=== PATIENT | male | born 1945 | race Hispanic/Latino ===

== ENCOUNTER 2019-03-20 09:58 | Emergency (ER) | payer MEDICARE ==
[2019-03-20] MEDS ORDERED: NA CHLORIDE 0.9% 2,000 ML ONE (11:02)
[2019-03-20] MEDS ORDERED: ONDANSETRON 4 MG/2 ML VIAL ONE (11:02)
[2019-03-20 11:12] LABS: Absolute Lymphocytes (CBC) 1.7 K/uL (0.7-4.9); Absolute Monocytes 0.8 K/uL (0.1-1.3); Absolute Neutrophil 7.2 K/uL (1.8-8.0); Basophils % 0.3 % (0-1.3); Hematocrit 34.4 % (39.6-49.0); Lymphocytes % 17.1 % (15.3-44.8); MPV 10.5 fL (7.6-11.3); Monocytes % 8.6 % (3.3-12.3); RBC Red Blood Cell Count 4.06 M/uL (4.33-5.43)
[2019-03-20 11:26] LABS: Bilirubin Direct 0.2 mg/dL (0-0.2); Bilirubin Total 0.5 mg/dL (0.2-1.0); Potassium 3.4 mmol/L (3.5-5.1); Protein, Total 7.5 g/dL (6.4-8.2)
--- NOTE | 2019-03-20 11:43 | ER ---
Nurse's Notes [facility] Name: Jeff Tyler Age: 74 yrs Sex: Male : 1945 Arrival Date: 03/20/2019 Time: 10:00 Bed 26 Private MD: Blanye Hdz E Diagnosis: Diarrhea, unspecified Presentation: 03/20 10:03 Transition of care: patient was not received from another setting of care. sv 10:03 Method Of Arrival: Ambulatory sv 10:03 Presenting complaint: Patient states: vomiting, diarrhea, chills, headache started sv Wednesday. Onset of symptoms was March 18, 2019. Care prior to arrival: Medication(s) given: Tylenol, Pepto bismol. 10:03 Acuity: LILY 3 sv 11:07 Risk Assessment: Do you want to hurt yourself or someone else? Patient reports no aj1 desire to harm self or others. Initial Sepsis Screen: Does the patient meet any 2 criteria? No. Patient's initial sepsis screen is negative. Does the patient have a suspected source of infection? No. Patient's initial sepsis screen is negative. Historical: - Allergies: 10:05 No Known Allergies; sv - PMHx: 10:05 Hypertension; Prostate; sv - Immunization history:: Adult Immunizations up to date. - Social history:: Smoking status: Patient/guardian denies using alcohol, street drugs, The patient lives with family. - Ebola Screening: : Patient denies travel to an Ebola-affected area in the 21 days before illness onset. - Family history:: not pertinent. Screenin:10 Abuse screen: Denies threats or abuse. Denies injuries from another. Nutritional aj1 screening: No deficits noted. Tuberculosis screening: No symptoms or risk factors identified. 13:03 Fall Risk None identified. aj1 Assessment: 10:10 General: Appears in no apparent distress. comfortable, Behavior is calm, cooperative, aj1 appropriate for age. Pain: Denies pain. Neuro: Level of Consciousness is awake, alert, obeys commands, Oriented to person, place, time, situation. Cardiovascular: Patient's skin is warm and dry. Respiratory: Airway is patent Respiratory effort is even, unlabored, Respiratory pattern is regular, symmetrical. GI: Abdomen is non-distended, Bowel sounds present X 4 quads. Abd is soft X 4 quads Abd is non tender X 4 quads Reports diarrhea, nausea, vomiting. : No signs and/or symptoms were reported regarding the genitourinary system. EENT: No signs and/or symptoms were reported regarding the EENT system. Derm: No signs and/or symptoms reported regarding the dermatologic system. Skin is pink, warm \T\ dry. normal. Musculoskeletal: No signs and/or symptoms reported regarding the musculoskeletal system. Circulation, motion, and sensation intact. 11:07 Reassessment: Patient appears in no apparent distress at this time. No changes from aj1 previously documented assessment. Patient and/or family updated on plan of care and expected duration. Pain level reassessed. Patient is alert, oriented x 3, equal unlabored respirations, skin warm/dry/pink. 11:46 Reassessment: Patient discharge pending completion of IV fluids. aj1 12:26 Reassessment: Patient appears in no apparent distress at this time. No changes from aj1 previously documented assessment. Patient and/or family updated on plan of care and expected duration. Pain level reassessed. Patient is alert, oriented x 3, equal unlabored respirations, skin warm/dry/pink. Patient states feeling better. 13:02 Reassessment: Patient appears in no apparent distress at this time. No changes from aj1 previously documented assessment. Patient and/or family updated on plan of care and expected duration. Pain level reassessed. Patient is alert, oriented x 3, equal unlabored respirations, skin warm/dry/pink. Vital Signs: 10:05 BP 146 / 71; Pulse 79; Resp 16; Temp 99.2; Pulse Ox 95% ; Weight 75.75 kg; Height 5 ft. sv 5 in. (165.10 cm); Pain 0/10; 11:07 BP 132 / 62; Pulse 68; Resp 18; Pulse Ox 98% on R/A; aj1 12:26 BP 136 / 61; Pulse 66; Resp 18; Pulse Ox 100% on R/A; aj1 13:02 BP 139 / 66; Pulse 80; Resp 16; Temp 98.9; Pulse Ox 100% on R/A; aj1 10:05 Body Mass Index 27.79 (75.75 kg, 165.10 cm) sv ED Course: 10:00 Patient arrived in ED. ag5 10:00 Blayne Hdz MD is Private Physician. ag5 10:05 Triage completed. sv 10:07 Arm band placed on. sv 10:08 Vita Tripp, RN is Primary Nurse. aj1 10:10 Patient has correct armband on for positive identification. Bed in low position. Call aj1 light in reach. Side rails up X 1. 10:10 No provider procedures requiring assistance completed. aj1 10:14 De Cheung MD is Attending Physician. ma2 11:06 Initial lab(s) drawn, by me, sent to lab. Inserted saline lock: 18 gauge in right aj1 antecubital area, using aseptic technique. Blood collected. 13:02 IV discontinued, intact, bleeding controlled, No redness/swelling at site. Pressure aj1 dressing applied. Administered Medications: 11:06 Drug: Zofran 4 mg Route: IVP; Site: right antecubital; aj1 12:25 Follow up: Response: No adverse reaction aj1 11:06 Drug: NS 0.9% 2000 ml Route: IV; Rate: 1 bolus; Site: right antecubital; aj1 13:01 Follow up: IV Status: Completed infusion; IV Intake: 2000ml aj1 Intake: 13:01 IV: 2000ml; Total: 2000ml. aj1 Outcome: 11:43 Discharge ordered by . nj2 13:03 Discharged to home ambulatory. aj1 13:03 Condition: good 13:03 Discharge instructions given to patient, family, Instructed on discharge instructions, follow up and referral plans. no drinking with medication, no driving heavy equipment, medication usage, Demonstrated understanding of instructions, follow-up care, medications, Prescriptions given X 3. 13:04 Patient left the ED. aj1 Signatures: Vita Tripp, RN RN aj1 Dolly Huizar RN RN De Cheung MD MD ma2 Gaskin, Ajare ag
--- NOTE | 2019-03-20 11:44 | EDPHYS ---
Physician Documentation [facility] Name: Jeff Tyler Age: 74 yrs Sex: Male : 1945 Arrival Date: 03/20/2019 Time: 10:00 Bed 26 Private MD: Blayne Hdz E ED Physician De Cheung HPI: 03/20 11:14 This 74 yrs old Male presents to ER via Ambulatory with complaints of ma2 Nausea/Vomiting/Diarrhea. 11:14 The patient presents to the emergency department with nausea, vomiting, diarrhea. ma2 Onset: The symptoms/episode began/occurred gradually, 2 day(s) ago. Possible causes: bad food exposure. Associated signs and symptoms: Pertinent negatives: belching, flatulence, GI bleeding, hematuria. Severity of symptoms: At their worst the symptoms were mild in the emergency department the symptoms are unchanged. The patient has experienced similar episodes in the past. Historical: - Allergies: 10:05 No Known Allergies; sv - PMHx: 10:05 Hypertension; Prostate; sv - Immunization history:: Adult Immunizations up to date. - Social history:: Smoking status: Patient/guardian denies using alcohol, street drugs, The patient lives with family. - Ebola Screening: : Patient denies travel to an Ebola-affected area in the 21 days before illness onset. - Family history:: not pertinent. ROS: 11:14 Constitutional: Negative for fever, chills, and weight loss, Cardiovascular: Negative ma2 for chest pain, palpitations, and edema, Respiratory: Negative for shortness of breath, cough, wheezing, and pleuritic chest pain, : Negative for injury, bleeding, discharge, and swelling, MS/Extremity: Negative for injury and deformity, Skin: Negative for injury, rash, and discoloration, Neuro: Negative for headache, weakness, numbness, tingling, and seizure, Psych: Negative for depression, anxiety, suicide ideation, homicidal ideation, and hallucinations, Allergy/Immunology: Negative for hives, rash, and allergies. 11:14 Abdomen/GI: Positive for nausea, vomiting, and diarrhea, Negative for constipation, bowel incontinence. Exam: 11:14 Constitutional: This is a well developed, well nourished patient who is awake, alert, ma2 and in no acute distress. Chest/axilla: Normal chest wall appearance and motion. Nontender with no deformity. No lesions are appreciated. Cardiovascular: Regular rate and rhythm with a normal S1 and S2. No gallops, murmurs, or rubs. Normal PMI, no JVD. No pulse deficits. Respiratory: Lungs have equal breath sounds bilaterally, clear to auscultation and percussion. No rales, rhonchi or wheezes noted. No increased work of breathing, no retractions or nasal flaring. Abdomen/GI: Soft, non-tender, with normal bowel sounds. No distension or tympany. No guarding or rebound. No evidence of tenderness throughout. MS/ Extremity: Pulses equal, no cyanosis. Neurovascular intact. Full, normal range of motion. Neuro: Awake and alert, GCS 15, oriented to person, place, time, and situation. Cranial nerves II-XII grossly intact. Motor strength 5/5 in all extremities. Sensory grossly intact. Cerebellar exam normal. Normal gait. Vital Signs: 10:05 BP 146 / 71; Pulse 79; Resp 16; Temp 99.2; Pulse Ox 95% ; Weight 75.75 kg; Height 5 ft. sv 5 in. (165.10 cm); Pain 0/10; 11:07 BP 132 / 62; Pulse 68; Resp 18; Pulse Ox 98% on R/A; aj1 12:26 BP 136 / 61; Pulse 66; Resp 18; Pulse Ox 100% on R/A; aj1 13:02 BP 139 / 66; Pulse 80; Resp 16; Temp 98.9; Pulse Ox 100% on R/A; aj1 10:05 Body Mass Index 27.79 (75.75 kg, 165.10 cm) sv MDM: 10:14 Patient medically screened. ma2 11:14 Differential diagnosis: Nonspecific abd pain, gastritis, viral gastroenteritis, ma2 gastroenteritis. 11:42 Data reviewed: vital signs, nurses notes. Counseling: I had a detailed discussion with maMalena the patient and/or guardian regarding: the historical points, exam findings, and any diagnostic results supporting the discharge/admit diagnosis, the presence of at least one elevated blood pressure reading (>120/80) during this emergency department visit, the need for outpatient follow up. Response to treatment: the patient's symptoms have resolved after treatment. 03/20 10:25 Order name: Basic Metabolic Panel; Complete Time: 11:43 md03/20 10:25 Order name: CBC with Diff; Complete Time: 11:14 [facility] 03/20 10:25 Order name: Creatinine for Radiology; Complete Time: 03/20 10:25 Order name: Hepatic Function; Complete Time: 03/20 10:25 Order name: Lipase; Complete Time: md03/20 10:25 Order name: IV Saline Lock; Complete Time: 03/20 10:25 Order name: Labs collected and sent; Complete Time: : Administered Medications: 11:06 Drug: Zofran 4 mg Route: IVP; Site: right antecubital; aj1 12:25 Follow up: Response: No adverse reaction aj1 11:06 Drug: NS 0.9% 2000 ml Route: IV; Rate: 1 bolus; Site: right antecubital; aj1 13:01 Follow up: IV Status: Completed infusion; IV Intake: 2000ml aj Disposition: 03/20/19 11:43 Discharged to Home. Impression: Diarrhea, unspecified. - Condition is Stable. - Discharge Instructions: Food Choices to Help Relieve Diarrhea, Adult, Diarrhea, Adult. - Prescriptions for Tylenol- Codeine #3 300-30 mg Oral Tablet - take 2 tablet by ORAL route every 6 hours As needed; 30 tablet. Zofran 8 mg Oral Tablet - take 1 tablet by ORAL route every 12 hours As needed; 20 tablet. Pepcid 20 mg Oral Tablet - take 1 tablet by ORAL route once daily for 10 days; 10 tablet. - Medication Reconciliation Form, Thank You Letter, Antibiotic Education, Prescription Opioid Use form. - Follow up: Private Physician; When: Tomorrow; Reason: Continuance of care. Signatures: Dispatcher [employer] Vita Hodges RN RN aj1 Dolly Huizar RN RN sv Alzahri, Mohammad, MD MD ma2 Corrections: (The following items were deleted from the chart) 13:04 11:43 03/20/2019 11:43 Discharged to Home. Impression: Diarrhea, unspecified. Condition aj1 is Stable. Prescriptions for Tylenol-Codeine #3 300-30 mg Oral Tablet - take 2 tablet by ORAL route every 6 hours As needed; 30 tablet, Zofran 8 mg Oral Tablet - take 1 tablet by ORAL route every 12 hours As needed; 20 tablet, Pepcid 20 mg Oral Tablet - take 1 tablet by ORAL route once daily for 10 days; 10 tablet. and Forms are Medication Reconciliation Form, Thank You Letter, Antibiotic Education, Prescription Opioid Use. Follow up: Private Physician; When: Tomorrow; Reason: Continuance of care. ma2
== END 2019-03-20 13:04 | disposition home or self-care (01) ==
LOC: ER 09:58
DX: R19.7 Diarrhea, unspecified (principal); I10 Essential (primary) hypertension
CPT/HCPCS: 96361; 85025; 80048; 36415; 80076; 83690; 96374; 99284; J7030; J2405

== ENCOUNTER 2021-08-15 09:24 | Day surgery (SDC) | payer MEDICARE, OTHER ==
[2021-08-15 10:01] LABS: MPV 8.8 fL (7.6-11.3)
[2021-08-15 10:24] VITALS: BMI 29.2
[2021-08-15 10:25] LABS: Protime INR 1.2
[2021-08-15] MEDS ORDERED: MIDAZOLAM HCL 2 MG/2 ML INJ ONE (11:24)
[2021-08-15] MEDS ORDERED: FENTANYL CITR 100 MCG/2 ML ONE (11:25)
[2021-08-15 12:22] VITALS: O2SAT 100
[2021-08-15] MEDS ORDERED: NALOXONE 0.4 MG/ML VIAL ONE (12:35)
[2021-08-15 14:08] VITALS: BP 107/51; TEMP 97.4
--- NOTE | 2021-08-15 15:32 | RAD REPORT ---
EXAM DESCRIPTION: US - Liver Biopsy Procedure - 08/15/2021 11:23 am CLINICAL HISTORY: ABD MASS, renal versus liver origin COMPARISON: Abdomen Pelvis W Contrast dated 08/07/2021 TECHNIQUE: Patient presents for image guided biopsy of a very large 15 cm lobulated mass filling the right-side of the abdomen. Prior imaging showed a very vascular and necrotic mass suspected to be re nal in origin. The biopsy procedure, risks and alternatives were discussed with the patient in detail. After answeri ng all questions both oral and written consent were obtained. A time-out procedure was performed. The patient had limited [place] Citizen speaking ability. Translation services were provided by the patient's rianna taylor who stated that she is an RN. IV access and physiologic monitors were in place. Preliminary imaging was performed and identified an access site clear of the gross areas of necrosis and clear of the large vessels seen along the periphery of the mass. The patient was pre-medicated wi th 1.0 milligrams Versed IV and 100 micrograms fentanyl IV. Access site was prepped and draped in the usual sterile fashion. Skin and deeper tissues were anesthe tized with 1% lidocaine. Under direct sonographic visualization an 17 gauge introducer needle was adv anced into the mass. An 18 gauge biopsy needle was advanced through the introducer. A 2 cm long core biopsy was obtained. There were 3 additional core biopsies obtained with angulation of the needle all owing for sampling of different portions of the mass. All the biopsy samples were small and fragmente d indicating a necrotic mass. A total of 4 biopsies were obtained. Additional sampling was not felt t o likely generate additional quality tissue for evaluation. At the conclusion the procedure the introducer needle was removed. Direct pressure was applied along the path of the needle. Hemostasis was obtained at the skin surface. A sterile bandage was placed. Po st biopsy ultrasound imaging of the mass showed no evidence for active bleeding or hematoma. Vital signs were stable throughout the procedure. The patient tolerated procedure well without immedi ate complications. Conscious sedation time was 40 minutes. IMPRESSION: 1. Ultrasound-guided core biopsy was performed of the large 15 cm mass in the right abdo men. 2. The patient tolerated procedure well without immediate complications and was transferred to the [facility] day surgical area for post biopsy monitoring. 3. All obtained material was given to pathology for histology assessment.
== END 2021-08-15 14:20 | disposition home or self-care (01) ==
LOC: DS 09:24
PROVIDERS: ATTEND Surgery
PROC: BW11ZZZ Fluoroscopy of Abdomen and Pelvis (ICD-10-PCS; principal; 2021-08-15)
PROC: 0J983ZX Drainage of Abdomen Subcutaneous Tissue and Fascia, Percutaneous Approach, Diagnostic (ICD-10-PCS; 2021-08-15)
DX: R19.00 Intra-abdominal and pelvic swelling, mass and lump, unspecified site (principal)
CPT/HCPCS: 36415; 47000; 85049; 85610; 85730; 88305; J2250; J2310; J3010

== ENCOUNTER 2021-10-11 09:05 | Inpatient (IN) | payer OTHER ==
--- OUTSIDE RECORDS SUMMARY | 2021-10-11 09:08 | XMS REPORT | Continuity of Care Document ---
:1945 Author Organization [facility] t Address [address] [place] [address] Care Team Providers Name Role Phone SYSTEM, NOT IN Attending Clinician Unavailable Jess MCKEON Attending Clinician Unavailable Payers Payer Name Policy Type Policy Number Effective Date Expiration Date S [facility] [id number] 2021 MD Bautista rsmt MEDICARE 00:00:00 [facility] MEDICARE [id number] 2021-Present[address] [address], [place] [address]Medicare [employer] [id number] 2020 MEDICARE ADVANTAGE 00:00:00 Problems This patient has no known problems. Allergies, Adverse Reactions, Alerts Allergy Allergy Status Severity Reaction(s) Onset Inactive Treating Comm ents Source Name Type Date Date Clinician NO KNOWN Drug [facility] Social History Social Habit Start Date Stop Date Quantity Comments Source Sex Ass[birth year] At [birth year] MD King 00:00:00 00:00:00 Medications This patient has no known medications. Procedures This patient has no known procedures. Encounters Start End Encounter Admission Attending Care Care Encounter Source Date/Time Date/Time Type Type Clinicians Facility Department ID 2021-08-24 Outpatient SYSTEM, [facility] [id number] 09:46:54 PROVIDER Fabricio schwarz 2021-01-21 2021-01-21 Outpatient Binaca MCKEON [facility] [id number] [facility] 10:10:00 10:10:00 ZU[facility]KA [facility] 2020-12-31 2020-12-31 Outpatient Bianca MCKEON [facility] [id number] [facility] 10:10:00 10:10:00 [facility] 2020-12-31 2020-12-31 [facility] [id number] [facility] 10:10:00 10:10:00 [facility] Results This patient has no known results.
--- OUTSIDE RECORDS SUMMARY | 2021-10-11 09:08 | XMS REPORT | Clinical Summary ---
:1945 Author Organization [facility] Address [address] [place] [address] Care Team Providers Name Role Phone Rhys Domingo MD Unavailable Allergies Not on File Medications Not on file Active Problems Not on file Encounters Date Type Specialty Care Team Description 08/22/2021 Travel after 10/11/2020 Social History Tobacco Use Types Packs/Day Years Used Date Never Assessed Sex Assigned at Date Recorded Not on file Job Start Date Occupation Industry Not on file Not on file Not on file Last Filed Vital Signs Not on file Plan of Treatment Not on file Results Not on fileafter 10/11/2020 Insurance Payer Benefit Plan / Subscriber ID Effective Phone Address T ype Group Dates [employer] MEDICARE [id number] 2021-Prese [address] [address] Medicare HEALTHCARE ADVANTAGE [place] [employer] [id number] Care Teams Information Technology Auditor Relationship Specialty Start Date End Date Rhys Domingo MD PCP - External Referring General Surgery 08/21/[address] [place] [address] [id number]
[2021-10-11 10:52] LABS: Absolute Lymphocytes (CBC) 1.6 K/uL (0.7-4.9); Basophils % 0.4 % (0-1.3); Hematocrit 36.3 % (39.6-49.0); Lymphocytes % 17.1 % (15.3-44.8); MPV 8.8 fL (7.6-11.3); RBC Red Blood Cell Count 4.08 M/uL (4.33-5.43)
--- NOTE | 2021-10-11 10:53 | RAD REPORT ---
EXAM DESCRIPTION: CT - Head Brain Wo Cont - 10/11/2021 10:41 am CLINICAL HISTORY: Confused;Mental status change Headache, drowsiness COMPARISON: HEAD BRAIN W O CONTRAST dated 01/06/2015; Brain W/Wo Cont dated 09/10/2021; Abdomen Pel vis W Contrast dated 08/07/2021; Abdomen With Cont dated 09/08/2021; Thorax W/ Con dated 09/10/2021; Liver Biopsy Procedure dated 08/15/2021; Bone Imaging Whole Body dated 09/10/2021 TECHNIQUE: All CT scans are performed using dose optimization technique as appropriate and may inclu de automated exposure control or mA/KV adjustment according to patient size. FINDINGS: No intracranial hemorrhage, hydrocephalus or extra-axial fluid collection.Mild brain atrop hy with mild periventricular and deep white matter chronic microvascular ischemia.No areas of brain e josé luis or evidence of midline shift. The paranasal sinuses and mastoids are clear. The calvarium is intact. IMPRESSION: No acute intracranial abnormality. If clinical symptomology persists, recommend follow- up MRI of the brain.
--- NOTE | 2021-10-11 10:59 | RAD REPORT ---
EXAM DESCRIPTION: CTAbdomen Pelvis W Contrast - 10/11/2021 10:41 am CLINICAL HISTORY: Abdominal pain. abd pain, vomiting, diarrhea, known mass COMPARISON: Abdomen Pelvis W Contrast dated 08/07/2021 TECHNIQUE: Biphasic CT imaging of the abdomen and pelvis was performed with 100 ml non-ionic IV cont rast. All CT scans are performed using dose optimization technique as appropriate and may include automated exposure control or mA/KV adjustment according to patient size. FINDINGS: Small right pleural effusion. The very large highly vascular mass occupying the majority of the right lobe of the liver superior as pect of the right kidney appears similar in size and imaging appearance to the comparative study. No vascular thrombosis is evident. Mild free fluid is seen along the right aspect of the liver as well a s along the left lateral aspect of the spleen. No bowel obstruction evident. No free air or abscess. Mildly prominent left sided para-aortic adenop athy is similar to prior study. No lytic or blastic bone lesion. IMPRESSION: The large mass in the right upper quadrant shows no real change since prior examination. No acute process is demonstrated this examination.
[2021-10-11 11:05] LABS: Albumin 2.8 g/dL (3.4-5.0); Bilirubin Direct 0.6 mg/dL (0-0.2); Bilirubin Total 1.5 mg/dL (0.2-1.0); Magnesium 2.2 mg/dL (1.8-2.4); Potassium 3.9 mmol/L (3.5-5.1); Protein, Total 7.8 g/dL (6.4-8.2)
[2021-10-11] MEDS ORDERED: NA CHLORIDE 0.9% 1,000 ML ONE (11:06)
[2021-10-11] MEDS ORDERED: ONDANSETRON 4 MG/2 ML VIAL ONE ×2 (11:06→22:05)
[2021-10-11 13:25] LABS: Urine Blood 2+ (Negative); Urine Glucose Negative (Negative); Urine Protein 1+ (Negative); Urine Specific Gravity 1.015 (1.005-1.030)
--- NOTE | 2021-10-11 13:29 | EDPHYS ---
Physician Documentation [facility] Name: Jeff Tyler Age: 76 yrs Sex: Male : 1945 Arrival Date: 10/11/2021 Time: 09:07 Bed 16 Private MD: Blayne Hdz E ED Physician Levy Figueredo HPI: 10/11 09:47 This 76 yrs old Male presents to ER via Wheelchair with complaints of rn Confusion, Dizziness, Weakness, Vomiting/Diarrhea. 09:48 The patient presents with confusion, decreased mental status, decreased responsiveness. rn Onset: The symptoms/episode began/occurred yesterday. Possible causes: unknown. Current symptoms: In the emergency department the patient's symptoms are unchanged from the initial presentation. The patient has not experienced similar symptoms in the past. The patient has been recently seen by a physician:. Family reports started first chemotherapy treatment this past week, report several days of nausea/vomiting/diarrhea, got worse yesterday, unable to get to bathroom, + decreased LOC and confusion. NO known trauma. Family reports mass between kidney and liver. No known metastases.. Historical: - Allergies: 09:41 No Known Allergies; ss - Home Meds: 19:25 losartan-hydrochlorothiazide 100-25 mg oral tab 1 tab once daily for hypertension jg9 [Active]; trazodone 50 mg Oral tab 1 tab prn \\T\\ night [Active]; tamsulosin 0.4 mg oral cap 1 cap once daily [Active]; Vitamin D 33544gx once weekly (wednesday) Oral 50,000 unit [Active]; axitinib 5 mg oral tab 2 tabs every 12 hours for renal cell carcinoma [Active]; - PMHx: 09:41 Hypertension; Prostate; Cancer "mass between kidney and liver"; ss - Immunization history:: Client reports receiving the 2nd dose of the Covid vaccine. - Social history:: Smoking status: Patient denies any tobacco usage or history of. - Family history:: not pertinent. - Hospitalizations: : No recent hospitalization is reported. ROS: 09:48 Constitutional: Negative for fever, chills Eyes: Negative for injury, pain, redness, rn and discharge, Neck: Negative for injury, pain, and swelling, Cardiovascular: Negative for chest pain, palpitations, and edema, Respiratory: Negative for shortness of breath, cough, wheezing, and pleuritic chest pain, Abdomen/GI: Positive for nausea/vomiting/diarrhea Back: Negative for injury and pain, : Negative for injury, bleeding, discharge, and swelling, MS/Extremity: Negative for injury and deformity, Skin: Negative for injury, rash, and discoloration, Neuro: Negative for headache, numbness, tingling, and seizure. Exam: 09:48 Constitutional: This is a well developed, well nourished patient who is awake, but rn somnolent and slumped in wheelchair. Head/Face: Normocephalic, atraumatic. Eyes: Periorbital areas with no swelling, redness, or edema. ENT: dry MM Cardiovascular: Regular rate and rhythm. No pulse deficits. Respiratory: No increased work of breathing, no retractions or nasal flaring. Abdomen/GI: soft, non-distended, no focal tenderness Skin: Warm, dry MS/ Extremity: Pulses equal, no cyanosis. Neuro: Awake, somnolent, moves all 4 extremities, with generalized weakness, non-focal. Answers questions. Vital Signs: 09:37 BP 175 / 63; Pulse 85; Resp 18; Temp 98.7(O); Pulse Ox 98% on R/A; ss 10:15 BP 168 / 68; Pulse 80; Resp 14; Pulse Ox 98% on R/A; jg9 11:15 BP 169 / 71; Pulse 83; Resp 19 S; Pulse Ox 95% on R/A; jg9 12:15 BP 164 / 65; Pulse 84; Resp 20 S; Pulse Ox 94% on R/A; jg9 13:30 BP 156 / 72; Pulse 82; Resp 20 S; Pulse Ox 95% on R/A; jg9 14:30 BP 165 / 77; Pulse 83; Resp 20 S; Pulse Ox 92% on R/A; jg9 15:00 BP 157 / 75; Pulse 77; Resp 14; Pulse Ox 95% on R/A; jg9 16:00 BP 156 / 64; Pulse 79; Resp 16 S; Pulse Ox 92% on R/A; jg9 19:10 BP 157 / 60; Pulse 82; Resp 18; Pulse Ox 96% on R/A; mk 21:15 BP 161 / 74; Pulse 80; Resp 18; Pulse Ox 97% ; mk NIH Stroke Scale Scores: 10:24 NIHSS Score: 0 jg9 Sanjay Coma Score: 19:10 Eye Response: spontaneous(4). Verbal Response: confused(4). Motor Response: obeys mk commands(6). Total: 14. 22:44 Eye Response: spontaneous(4). Verbal Response: confused(4). Motor Response: obeys mk commands(6). Total: 14. MDM: 09:39 Patient medically screened. rn 13:23 Differential Diagnosis: CVA, electrolyte abnormality, hypoglycemia, intracranial bleed, rn sepsis, TIA, UTI, volume depletion. Data reviewed: vital signs, nurses notes, lab test result(s), radiologic studies, CT scan, and as a result, I will admit patient. Counseling: I had a detailed discussion with the patient and/or guardian regarding: the historical points, exam findings, and any diagnostic results supporting the discharge/admit diagnosis, lab results, radiology results, the need for further work-up and treatment in the hospital. Response to treatment: the patient's symptoms have mildly improved after treatment, and as a result, I will admit patient. Admission orders: after a detailed discussion of the patient's condition and case, the admit orders are written by me. ED course: Pt improved with fluids but still confused and slow to respond. Family reports seems better but not back to baseline. CT head neg for metastases, CT abdomen does not show worsening of mass. Will admit to Dr. Jaime for observation. . 10/11 09:46 Order name: Basic Metabolic Panel rn 10/11 09:46 Order name: CBC with Diff rn 10/11 09:46 Order name: Hepatic Function rn 10/11 09:46 Order name: Lipase rn 10/11 09:46 Order name: Urine Microscopic Only rn 10/11 09:46 Order name: Procalcitonin; Complete Time: 12:00 rn 10/11 09:46 Order name: Blood Culture Adult (2) rn 10/11 09:46 Order name: Magnesium; Complete Time: 12:00 rn 10/11 09:47 Order name: Basic Metabolic Panel; Complete Time: 12:00 EDMS 10/11 09:47 Order name: CBC with Automated Diff EDFL 10/11 09:47 Order name: Liver (Hepatic) Function; Complete Time: 12:00 EDMS 12/18 09:47 Order name: Lipase; Complete Time: 12:00 EDMS 10/11 10:44 Order name: SARS-COV-2 RT PCR (Document "Date of Onset" if Symptomatic); Complete Time: rn 13:10/11 12:26 Order name: AMMONIA rn 10/11 09:46 Order name: CT Head Brain wo Cont; Complete Time: 11:00 rn 10/11 09:46 Order name: CT Abd/Pelvis - IV Contrast Only; Complete Time: 11:00 rn 10/11 12:27 Order name: Urine Culture rn 10/11 12:27 Order name: Ammonia EDMS 10/11 12:27 Order name: Urine Culture EDMS 10/11 13:25 Order name: Urine Dipstick-Ancillary; Complete Time: 13:26 EDMS 10/11 13:44 Order name: Manual Differential EDMS 10/11 13:59 Order name: Comprehensive Metabolic Panel EDMS 10/11 13:59 Order name: Comprehensive Metabolic Panel EDMS 10/11 13:59 Order name: Thyroid Stimulating Hormone EDMS 10/11 13:59 Order name: CBC with Automated Diff EDMS 10/11 13:59 Order name: CBC with Automated Diff EDMS 10/11 13:59 Order name: Magnesium EDMS 10/11 13:59 Order name: Magnesium EDMS 10/11 13:59 Order name: Magnesium EDMS 10/11 13:59 Order name: Magnesium EDMS 10/11 09:46 Order name: IV Saline Lock; Complete Time: 11:05 rn 10/11 09:46 Order name: Labs collected and sent; Complete Time: 11:05 rn 10/11 09:46 Order name: Urine Dipstick-Ancillary (obtain specimen); Complete Time: 13:27 rn 10/11 09:46 Order name: EKG; Complete Time: 09:47 rn 10/11 09:46 Order name: EKG - Nurse/Tech; Complete Time: 11:05 rn 10/11 13:59 Order name: Heart Healthy EDMS Administered Medications: :18 Drug: NS 0.9% 1000 ml Route: IV; Rate: 1000 ml; Site: left forearm; jg9 13:25 Follow up: IV Status: Completed infusion; IV Intake: 1000ml jg9 11:20 Drug: Zofran (Ondansetron) 4 mg Route: IVP; Site: left forearm; jg9 13:36 Follow up: Response: No adverse reaction; Marked relief of symptoms jg9 Disposition Summary: 10/11/21 13:28 Hospitalization Ordered Hospitalization Status: Observation rn Provider: Lance Jaime rn Condition: Stable rn Problem: new rn Symptoms: have improved rn Bed/Room Type: Standard rn Location: Telemetry/MedSurg (Inpatient)(10/11/21 20:45) Room Assignment: 203(10/11/21 20:45) Diagnosis - Vomiting, unspecified rn - Diarrhea, unspecified rn - Altered mental status, unspecified rn - Dehydration rn Forms: - Medication Reconciliation Form rn - SBAR form rn NIH Stroke Scale - NIH Stroke Score Date: 10/11/2021 Time: 10:24 Total Score = 0 1a. Level of Consciousness (LOC) - 0(Alert) 1b. Level of Consciousness (LOC) (Month \\T\\ Age) - 0(Both) 1c. LOC Commands (Open \\T\\ Closes Eyes/Hygiene Teacher) - 0(Both) 2. Best Gaze (Lateral Gaze Paresis) - 0(Normal) 3. Visual Field Loss - 0(No visual loss) 4. Facial Palsy - 0(Normal) 5a. Left Arm: Motor (10-second hold) - 0(No drift) 5b. Right Arm: Motor (10-second hold) - 0(No drift) 6a. Left Leg: Motor (5-second hold - always test supine) - 0(No drift) 6b. Right Leg: Motor (5-second hold - always test supine) - 0(No drift) 7. Limb Ataxia (finger/nose \\T\\ heel/sanz - test with eyes open) - 0(Absent) 8. Sensory Loss (pinprick arms/legs/face) - 0(Normal) 9. Best Language: Aphasia (description/naming/reading) - 0(No aphasia) 10. Dysarthria (speech clarity - read or repeat words) - 0(Normal) 11. Extinction and Inattention (visual/tactile/auditory/spatial/personal) - 0(No abnormality) Initials: jg9 Signatures: Dispatcher [employer] EDMS Debi Fountain RN RN mw Nieto, Roman, MD MD rn Smirch, Shelby, RN RN ss Gilmore, Jennifer jg9 Corrections: (The following items were deleted from the chart) 18 13:28 Telemetry/MedSurg (observation) rn ss 18:38 13:28 wayne hodgson :45 18:38 [facility] ER [facility] mw 18:38 ERHOLD- mw
--- NOTE | 2021-10-11 13:29 | ER ---
Nurse's Notes [facility] Name: Jeff Tyler Age: 76 yrs Sex: Male : 1945 Arrival Date: 10/11/2021 Time: 09:07 Bed 16 Private MD: Blayne Hdz E Diagnosis: Vomiting, unspecified;Diarrhea, unspecified;Altered mental status, unspecified;Dehydration Presentation: 10/11 09:37 Chief complaint: Patient's son or daughter states: Generalized weakness, confusion, ss N/V/D that began 1 week ago after patient started oral chemo therapy. Daughter states that last night at 6 pm or so he seemed markedly worse. Coronavirus screen: Client denies travel out of the [place] in the last 14 days. Ebola Screen: Patient denies exposure to infectious person. Patient denies travel to an Ebola-affected area in the 21 days before illness onset. Pre-hospital glucose is not applicable to this patient. Initial Sepsis Screen: Does the patient meet any 2 criteria? No. Patient's initial sepsis screen is negative. Does the patient have a suspected source of infection? No. Patient's initial sepsis screen is negative. Risk Assessment: Do you want to hurt yourself or someone else? Patient reports no desire to harm self or others. Onset of symptoms was October 04, 2021. 09:37 Method Of Arrival: Wheelchair ss 09:37 Acuity: LILY 2 ss 10:26 No acute neurological deficit is noted. jg9 Triage Assessment: 10:26 Neuro: Reports no complaints. jg9 11:00 The onset of the patients symptoms was October 10, 2021 at 08:00. jg9 Stroke Activation: Symptom onset > 6 hours Physician: Stroke Attending; Name: ; Notified At: ; Arrived At: Physician: Chief Stroke Resident; Name: ; Notified At: ; Arrived At: Physician: Stroke Resident; Name: ; Notified At: ; Arrived At: Physician: ED Attending; Name: ; Notified At: ; Arrived At: Physician: ED Resident; Name: ; Notified At: ; Arrived At: Historical: - Allergies: 09:41 No Known Allergies; ss - Home Meds: 19:25 losartan-hydrochlorothiazide 100-25 mg oral tab 1 tab once daily for hypertension jg9 [Active]; trazodone 50 mg Oral tab 1 tab prn \\T\\ night [Active]; tamsulosin 0.4 mg oral cap 1 cap once daily [Active]; Vitamin D [id number] once weekly (wednesday) Oral 50,000 unit [Active]; axitinib 5 mg oral tab 2 tabs every 12 hours for renal cell carcinoma [Active]; - PMHx: 09:41 Hypertension; Prostate; Cancer "mass between kidney and liver"; ss - Immunization history:: Client reports receiving the 2nd dose of the Covid vaccine. - Social history:: Smoking status: Patient denies any tobacco usage or history of. - Family history:: not pertinent. - Hospitalizations: : No recent hospitalization is reported. Screenin:21 Abuse screen: Denies threats or abuse. Denies injuries from another. Nutritional jg9 screening: Has had N/V for 3 or more days. Tuberculosis screening: No symptoms or risk factors identified. Fall Risk None identified. Assessment: 10:17 General: Appears uncomfortable, Behavior is quiet. Pain: Complains of pain in abdomen jg9 Unable to use pain scale. Patient appears to be grimacing. Neuro: No deficits noted. Cardiovascular: No deficits noted. Respiratory: No deficits noted. GI: Parent/caregiver reports the patient having diarrhea, nausea, vomiting. : No deficits noted. EENT: No deficits noted. 10:24 VAN Scoring: Arm Drift: Patients demonstrates NO arm weakness. Patient is VAN Negative. jg9 Visual Disturbance: No visual disturbance noted. Aphasia: No aphasia noted. Neglect: No neglect noted. The patient has not been NPO before screening. The patient is alert, and able to follow commands. The patient does not exhibit slurred or garbled speech. The patient is not exhibiting difficulty speaking. The patient does not exhibit difficulty understanding words. The patient is able to swallow own secretions with no drooling or need for suction. Patient tolerated one teaspoon of water. No drooling, immediate coughing, gurgling, or clearing of the throat was noted. The patient tolerated 90mL of water. No drooling, immediate coughing, gurgling, or clearing of the throat was noted. The patient passed the bedside swallow screening. Oral medications may be given as ordered. Contact Physician for further diet orders. 10:26 T-PA (Activase) Screening: Indications: Contraindications: Intracranial hemorrhage and jg9 its risk factor and suspicion of subarachnoid bleed:. 10:27 Provider notified of bedside swallow screening results: Levy Figueredo MD. jg9 10:45 Derm: No deficits noted. Musculoskeletal: Parent/caregiver report the patient having jg9 general weakness since starting chemo treatment, worsened yesterday and today. 12:00 Reassessment: Patient appears in no apparent distress at this time. Patient states jg9 symptoms have improved. Patient becoming more alert and responsive-per family at bedside. 13:00 Reassessment: Patient and/or family updated on plan of care and expected duration. Pain jg9 level reassessed. Patient is alert, oriented x 3, equal unlabored respirations, skin warm/dry/pink. Patient states symptoms have improved. 14:46 Reassessment: Patient and/or family updated on plan of care and expected duration. Pain jg9 level reassessed. Patient states symptoms have improved. 15:00 Reassessment: Patient appears in no apparent distress at this time. Patient and/or jg9 family updated on plan of care and expected duration. Pain level reassessed. Patient is alert, oriented x 3, equal unlabored respirations, skin warm/dry/pink. Patient states feeling better. 16:05 Reassessment: Patient appears in no apparent distress at this time. Patient and/or jg9 family updated on plan of care and expected duration. Pain level reassessed. 19:10 General: Appears uncomfortable. Neuro: Level of Consciousness is awake, alert, obeys mk commands, Oriented to person, place. Neuro: Gait is unsteady, Speech is normal, Facial symmetry appears normal, Pupils are PERRLA, Reaction to noxious stimuli is withdrawal. Cardiovascular: Capillary refill < 3 seconds fingers toes Pulses are 2+ in right radial artery, right dorsalis pedis artery, left radial artery and left dorsalis pedis artery Rhythm is regular. Cardiovascular:. Respiratory: Airway is patent Trachea midline Respiratory effort is even, unlabored, Breath sounds are clear. GI: Abdomen is flat, non-distended, Parent/caregiver reports the patient having diarrhea, nausea, vomiting. : No signs and/or symptoms were reported regarding the genitourinary system. 20:10 Musculoskeletal: Parent/caregiver report the patient having. 20:10 Reassessment: Patient and/or family updated on plan of care and expected duration. Pain mk level reassessed. 20:10 Neuro: Level of Consciousness is awake, alert, obeys commands, Oriented to person, mk place. 21:10 Reassessment: No changes from previously documented assessment. Patient and/or family mk updated on plan of care and expected duration. Pain level reassessed. 22:05 Reassessment: No changes from previously documented assessment. Patient and/or family mk updated on plan of care and expected duration. Pain level reassessed. Vital Signs: 09:37 BP 175 / 63; Pulse 85; Resp 18; Temp 98.7(O); Pulse Ox 98% on R/A; ss 10:15 BP 168 / 68; Pulse 80; Resp 14; Pulse Ox 98% on R/A; jg9 11:15 BP 169 / 71; Pulse 83; Resp 19 S; Pulse Ox 95% on R/A; jg9 12:15 BP 164 / 65; Pulse 84; Resp 20 S; Pulse Ox 94% on R/A; jg9 13:30 BP 156 / 72; Pulse 82; Resp 20 S; Pulse Ox 95% on R/A; jg9 14:30 BP 165 / 77; Pulse 83; Resp 20 S; Pulse Ox 92% on R/A; jg9 15:00 BP 157 / 75; Pulse 77; Resp 14; Pulse Ox 95% on R/A; jg9 16:00 BP 156 / 64; Pulse 79; Resp 16 S; Pulse Ox 92% on R/A; jg9 19:10 BP 157 / 60; Pulse 82; Resp 18; Pulse Ox 96% on R/A; mk 21:15 BP 161 / 74; Pulse 80; Resp 18; Pulse Ox 97% ; mk Sanjay Coma Score: 19:10 Eye Response: spontaneous(4). Verbal Response: confused(4). Motor Response: obeys mk commands(6). Total: 14. 22:44 Eye Response: spontaneous(4). Verbal Response: confused(4). Motor Response: obeys mk commands(6). Total: 14. NIH Stroke Scale Scores: 10:24 NIHSS Score: 0 j9 ED Course: 09:07 Patient arrived in ED. mr 09:08 Blayne Hdz MD is Private Physician. mr 09:39 Levy Figueredo MD is Attending Physician. rn 09:41 Triage completed. ss 09:41 Arm band placed on right wrist. ss 10:17 Yanelis Kelsey is Primary Nurse. jg9 10:24 Inserted saline lock: 22 gauge in left forearm, using aseptic technique. jg9 10:27 Patient has correct armband on for positive identification. Bed in low position. Call jg9 light in reach. Side rails up X 1. 10:40 CT Head Brain wo Cont In Process Unspecified. EDMS 10:41 CT Abd/Pelvis - IV Contrast Only In Process Unspecified. EDMS 13:26 Urine Culture Sent. jg9 13:26 Urine Culture Sent. jg9 13:26 Basic Metabolic Panel Sent. jg9 13:26 CBC with Diff Sent. jg9 13:27 Lance Jaime MD is Hospitalizing Provider. rn 13:27 Hepatic Function Sent. jg9 13:27 Lipase Sent. jg9 13:39 AMMONIA Sent. jg9 14:15 water and crackers. jg9 14:40 No apparent distress. Resting quietly. Awaiting bed assignment. Pt visited by daughter. jg9 16:11 No provider procedures requiring assistance completed. jg9 16:11 Patient admitted, IV remains in place. jg9 Administered Medications: 11:18 Drug: NS 0.9% 1000 ml Route: IV; Rate: 1000 ml; Site: left forearm; jg9 13:25 Follow up: IV Status: Completed infusion; IV Intake: 1000ml jg9 11:20 Drug: Zofran (Ondansetron) 4 mg Route: IVP; Site: left forearm; jg9 13:36 Follow up: Response: No adverse reaction; Marked relief of symptoms jg9 Intake: 13:25 IV: 1000ml; Total: 1000ml. jg9 Outcome: 13:28 Decision to Hospitalize by Provider. rn 16:11 Admitted to ER Hold. Please see [facility] for further documentation. jg9 16:11 Condition: stable 23:02 Patient left the ED. NIH Stroke Scale - NIH Stroke Score Date: 10/11/2021 Time: 10:24 Total Score = 0 1a. Level of Consciousness (LOC) - 0(Alert) 1b. Level of Consciousness (LOC) (Month \\T\\ Age) - 0(Both) 1c. LOC Commands (Open \\T\\ Closes Eyes/Round Boner) - 0(Both) 2. Best Gaze (Lateral Gaze Paresis) - 0(Normal) 3. Visual Field Loss - 0(No visual loss) 4. Facial Palsy - 0(Normal) 5a. Left Arm: Motor (10-second hold) - 0(No drift) 5b. Right Arm: Motor (10-second hold) - 0(No drift) 6a. Left Leg: Motor (5-second hold - always test supine) - 0(No drift) 6b. Right Leg: Motor (5-second hold - always test supine) - 0(No drift) 7. Limb Ataxia (finger/nose \\T\\ heel/sanz - test with eyes open) - 0(Absent) 8. Sensory Loss (pinprick arms/legs/face) - 0(Normal) 9. Best Language: Aphasia (description/naming/reading) - 0(No aphasia) 10. Dysarthria (speech clarity - read or repeat words) - 0(Normal) 11. Extinction and Inattention (visual/tactile/auditory/spatial/personal) - 0(No abnormality) Initials: jg9 Signatures: Dispatcher [employer] [facility] Hay Gayathri FigueredoLevy MD MD rn Smirch, Shelby, RN RN ss Gilmore, Jennifer jg9 Roseanna Adams, KAREN jim Corrections: (The following items were deleted from the chart) 14:42 11:00 The onset of the patients symptoms was at an unknown time jg9 jg9 22:43 20:10 Reassessment: Patient and/or family updated on plan of care and expected mk duration. Pain level reassessed. Patient is alert, oriented x 3, equal unlabored respirations, skin warm/dry/pink. 22:45 19:10 GCS: 15, [facility]
[2021-10-11 13:42] LABS: Urine Bacteria <20 /HPF (NONE SEEN); Urine RBC <5 /HPF (NONE SEEN)
[2021-10-11 13:45] LABS: Anisocytosis SLIGHT; Blood Morphology Comment NOTED (NOT SEEN); Platelet Estimate DECR; Polychromasia 1+
[2021-10-11] MEDS ORDERED: LOPERAMIDE HCL 2 MG CAPSULE PO PRN (13:57)
[2021-10-11] MEDS: AMLODIPINE 5 MG TAB PO SCH (13:57)
[2021-10-11] MEDS: Ringers Lactate 1,000 ML IV SCH (14:00)
--- NOTE | 2021-10-11 14:05 | P.HP ---
Certification for Inpatient Patient admitted to: Observation With expected LOS: <2 Midnights Patient will require the following post-hospital care: None Practitioner: I am a practitioner with admitting privileges, knowledge of patient current condition, hospital course, and medical plan of care. 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 Symptoms progressed to intermittent vomiting since the last 2 days. 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 Peck patient has been progressively weak, confused with development of tremors and inability to hold things. Patient developed diarrhea since the last 2 days which has been persistent. He took his first dose of Imodium earlier today but given progressive weakness and inability to speak properly today patient was brought to the ED. On arrival in the ED patient was reportedly poorly responsive and unable to respond to questions. He was felt to be dehydrated and given 1 L normal saline after which patient became slightly more responsive. He is able to answer to simple questions now. He denies any pain or dizziness. He denies any headache. He still intermittently drowsy and daughter helping with history. Urinalysis shows trace ketones but no WBC or leukocyte esterase. Head CT shows no acute intracranial pathology. Creatinine is mildly elevated at 1.375 which is above patient baseline of 1.2-1.4. He has been admitted for chemo induced diarrhea and vomiting Allergies No Known Drug Allergies Allergy (Unverified 01/24/15 11:13) Unknown Home Medications: Losartan/Hydrochlorothiazide [Losartan-Hctz 100-25 mg Tab] 1 tab PO DAILY 08/15/21 Tamsulosin [Flomax] 0.4 mg PO DAILY 08/15/21 - Past Medical/Surgical History -: Stage IV clear cell renal cancer -: Hypertension -: BPH -: History of appendectomy - Social History Smoking Status: Never smoker Alcohol use: No Place of Residence: Home Review of Systems is unable to be obtained (Due to patient intermittent drowsy state) Gastrointestinal: Nausea, Vomiting, Diarrhea Neurological: Weakness, Incoordination, Confusion Physical Examination - Physical Exam General: Alert, In no apparent distress, Other (Still lethargic) HEENT: Atraumatic, Normocephalic, PERRLA Neck: Supple, 2+ carotid pulse no bruit, JVD not distended Respiratory: Clear to auscultation bilaterally, Normal air movement Cardiovascular: No edema, Regular rate/rhythm, Normal S1 S2 Gastrointestinal: Normal bowel sounds, Non-distended, Other (Palpable mass over right hepatic area), Masses Musculoskeletal: No clubbing, No swelling Integumentary: No rashes, No breakdown Neurological: Other (Drowsy) - Studies Laboratory Data (last 24 hrs) 10/11/21 10:20: WBC 9.10, Hgb 11.8 L, Hct 36.3 L, Plt Count 139 L 10/11/21 10:20: Sodium 136, Potassium 3.9, BUN 39 H, Creatinine 1.37 H, Glucose 122 H, Magnesium 2.2, Total Bilirubin 1.5 H, AST 162 H, ALT 119 H, Alkaline Phosphatase 316 H, Lipase 230 Assessment and Plan - Problems (Diagnosis) (1) Renal cell carcinoma Current Visit: Yes Status: Acute (2) Dehydration Current Visit: Yes Status: Acute (3) Chemotherapy induced nausea and vomiting Current Visit: Yes Status: Acute (4) Hypertension Current Visit: Yes Status: Acute (5) BPH (benign prostatic hyperplasia) Current Visit: Yes Status: Acute (6) Metabolic acidosis Current Visit: Yes Status: Acute - Plan Impression Chemo-induced nausea vomiting diarrhea Metabolic acidosis Chronic kidney disease stage III A Hypertension Metabolic encephalopathydue to dehydration Renal cell carcinomaon chemo Plan We will admit patient to observation -Given change in mental status, head CT negative, abdominal CT shows no change in renal hepatic mass size We will do neuro checks every 6 hours for now Continue gentle hydration, will switch IVF to lactated Ringer's -Initiate p.o. intake and monitor - IV Zofran as needed We will also dose loperamide as needed if recurrent diarrhea Might benefit from scopolamine patch if persistent nausea DVT prophylaxis with subcutaneous heparin Continue GI prophylaxisstart PPI Hold losartan/HCTZ for now since elevated creatinine or recurrent volume depletion We added amlodipine for blood pressure control Continued BPH medication with Flomax Possible hospital stay for less than 24 hours Advance directivediscussed with daughter, wishes to remain full code for now - Advance Directives Does patient have a Living Will: No Does patient have a Durable POA for Healthcare: No Physician Review: Patient Assessed, Agree with Above Assessment and Plan Time Spent Managing Pts Care (In Minutes): 60
[2021-10-11] MEDS: PANTOPRAZOLE 40MG TABLET PO SCH (16:30)
[2021-10-11 16:33] LABS: Magnesium 2.1 mg/dL (1.8-2.4); Thyroid Stimulating Hormone 2.36 uIU/mL (0.360-3.740)
[2021-10-11] MEDS: HEPARIN 5000 UNIT/ML 1 ML VIAL SQ SCH (17:00)
[2021-10-11 19:21] VITALS: BMI 28.0
[2021-10-11] MEDS ORDERED: AMLODIPINE 5 MG TAB ONE (19:38)
[2021-10-11] MEDS ORDERED: HEPARIN 5000 UNIT/ML 1 ML VIAL ONE (19:38)
[2021-10-11] MEDS ORDERED: PANTOPRAZOLE 40MG TABLET PO ONE (19:38)
[2021-10-11] MEDS ORDERED: Ringers Lactate 1,000 ML IV ONE (19:38)
[2021-10-11] MEDS: AXITINIB 5 MG PO SCH (21:00)
[2021-10-11] MEDS ORDERED: MORPHINE 2 MG/ML SYR ONE (22:05)
[2021-10-11] MEDS: MORPHINE 2 MG/ML SYR IV PRN (22:09)
[2021-10-11] MEDS: ONDANSETRON 4 MG/2 ML VIAL IV PRN (22:09)
[2021-10-12] MEDS: HEPARIN 5000 UNIT/ML 1 ML VIAL SQ SCH ×3 (00:30→16:26)
[2021-10-12] MEDS: Ringers Lactate 1,000 ML IV SCH ×2 (02:35→08:25)
[2021-10-12 04:21] LABS: Absolute Lymphocytes (CBC) 1.4 K/uL (0.7-4.9); Basophils % 0.3 % (0-1.3); Hematocrit 37.5 % (39.6-49.0); Lymphocytes % 11.3 % (15.3-44.8); MPV 8.6 fL (7.6-11.3)
[2021-10-12] MEDS: HYDRALAZINE HCL 20 MG/ML VIAL IV PRN ×2 (04:21→13:17)
[2021-10-12 04:39] LABS: Albumin 2.6 g/dL (3.4-5.0); Bilirubin Total 1.7 mg/dL (0.2-1.0); Protein, Total 7.2 g/dL (6.4-8.2)
[2021-10-12] MEDS: MORPHINE 2 MG/ML SYR IV PRN (06:25)
[2021-10-12] MEDS: ONDANSETRON 4 MG/2 ML VIAL IV PRN (06:25)
[2021-10-12] MEDS: PANTOPRAZOLE 40MG TABLET PO SCH ×2 (07:30→16:24)
[2021-10-12] MEDS: TAMSULOSIN 0.4 MG SR CAP PO SCH (08:25)
[2021-10-12] MEDS: AMLODIPINE 5 MG TAB PO SCH ×2 (08:26→10:00)
[2021-10-12] MEDS: AXITINIB 5 MG PO SCH ×3 (08:26→20:20)
[2021-10-12] MEDS ORDERED: PNEUMOCOCCAL VACCINE 0.5 ML IMVAC ONE (09:00)
--- NOTE | 2021-10-12 09:08 | P.PN ---
Subjective Date of Service: 10/12/21 Chief Complaint: Weakness and confusion Subjective: New changes (Still drowsy and confused this morning Markedly sleepy, daughter at bedside reports complain of pain overnight and given morphine) Physical Examination - Vital Signs Temperature: 98.4 F Blood Pressure: 161/67 Pulse: 97 Respirations: 20 Pulse Ox (%): 93 - Physical Exam General: Confused, Delirious HEENT: Atraumatic, Normocephalic, PERRLA Neck: Supple, 2+ carotid pulse no bruit, JVD not distended Respiratory: Clear to auscultation bilaterally, Diminished Cardiovascular: No edema, Normal pulses, Regular rate/rhythm, Normal S1 S2 Gastrointestinal: Normal bowel sounds, Soft and benign, Hepatomegaly, Tenderness, Masses Musculoskeletal: No clubbing, No swelling Integumentary: No rashes, No breakdown Neurological: Normal tone, Sensation intact - Studies Laboratory Data (last 24 hrs) 10/11/21 10:20: WBC 9.10, Hgb 11.8 L, Hct 36.3 L, Plt Count 139 L 10/11/21 10:20: Sodium 136, Potassium 3.9, BUN 39 H, Creatinine 1.37 H, Glucose 122 H, Magnesium 2.2, Total Bilirubin 1.5 H, AST 162 H, ALT 119 H, Alkaline Phosphatase 316 H, Lipase 230 Assessment And Plan - Current Problems (Diagnosis) (1) Renal cell carcinoma Current Visit: Yes Status: Acute (2) Dehydration Current Visit: Yes Status: Acute (3) Chemotherapy induced nausea and vomiting Current Visit: Yes Status: Acute (4) Hypertension Current Visit: Yes Status: Acute (5) BPH (benign prostatic hyperplasia) Current Visit: Yes Status: Acute (6) Metabolic acidosis Current Visit: Yes Status: Acute - Plan Impression Chemo-induced nausea vomiting diarrhea Metabolic acidosis Chronic kidney disease stage III A Hypertension Metabolic encephalopathydue to dehydration Renal cell carcinomaon chemo Hyperammonemia Plan Elevated ammonia level, will start lactulose per rectum and p.o. if able to tolerate p.o. -Presence of elevated LFTs may be due to malignancy invasion into the liver and also likely causing elevated ammonia level - initial head CT was negative but since persistent symptoms, would recommend MRI of the brain in a.m. Continue neurochecks Creatinine improving although baseline CKD Elevated blood pressure, add amlodipine Continue to hold losartan/HCTZ Dehydration improving, continue IV fluid -Abdominal CT shows no change in renal hepatic mass size Continue IV Zofran as needed -Diarrhea resolved, continue as needed loperamide Might benefit from scopolamine patch if persistent nausea DVT prophylaxis with subcutaneous heparin Continue GI prophylaxisstart PPI Continued BPH medication with Flomax Advance directivediscussed with daughter, wishes to remain full code for now Physician Review: Patient Assessed, Agree with Above Assessment and Plan
[2021-10-12] MEDS ORDERED: Ringers Lactate 1,000 ML IV SCH (09:13)
[2021-10-12] MEDS ORDERED: LACTULOSE 20 GM/30 ML UCUP PR ONE (09:13)
[2021-10-12] MEDS ORDERED: LACTULOSE 20 GM/30 ML UCUP PO SCH (10:00)
[2021-10-12] MEDS ORDERED: LACTULOSE 20 GM/30 ML UCUP PR SCH ×2 (13:35→15:00)
[2021-10-12] MEDS ORDERED: ACETAMINOPHEN 650MG/RECT SUPP PR ONE (14:20)
[2021-10-12] MEDS: LACTULOSE 20 GM/30 ML UCUP PR SCH ×3 (14:47→23:00)
--- NOTE | 2021-10-12 15:05 | RAD REPORT ---
EXAM DESCRIPTION: Navneet Single View10/12/2021 2:50 pm CLINICAL HISTORY: Fever COMPARISON: August 2021 FINDINGS: [id number] bilateral pulmonary opacities. Heart remains enlarged IMPRESSION: [id number] bilateral pulmonary opacities suspicious for pneumonia
[2021-10-12] MEDS: D5LR 1,000 ML IV SCH (16:25)
[2021-10-12] MEDS: CEFTRIAXONE 1,000 MG in NA CHLORIDE 0.9% 50 ML IVPB SCH (16:32)
[2021-10-12] MEDS ORDERED: ACETAMINOPHEN 650MG/RECT SUPP PR PRN (20:28)
[2021-10-13] MEDS: HEPARIN 5000 UNIT/ML 1 ML VIAL SQ SCH ×4 (00:04→23:58)
[2021-10-13] MEDS: LACTULOSE 20 GM/30 ML UCUP PO SCH ×4 (05:03→23:58)
[2021-10-13 07:41] LABS: Absolute Lymphocytes (CBC) 1.4 K/uL (0.7-4.9); Basophils % 0.2 % (0-1.3); Hematocrit 38.1 % (39.6-49.0); Lymphocytes % 8.7 % (15.3-44.8); MPV 8.5 fL (7.6-11.3); RBC Red Blood Cell Count 4.26 M/uL (4.33-5.43)
--- NOTE | 2021-10-13 07:50 | RAD REPORT ---
EXAM DESCRIPTION: RAD - Chest Single View - 10/13/2021 7:16 am CLINICAL HISTORY: follow up pneumonia COMPARISON: Chest Single View dated 10/12/2021; CHEST SINGLE VIEW dated 01/06/2015; CHEST SINGLE VIEW dated 03/19/2011; Abdomen Pelvis W Contrast dated 10/11/2021 FINDINGS: Lines: None. Lungs: Bilateral pulmonary opacities are present. These are unchanged compared with 10/12/2021. Pleural: No significant pleural effusions or pneumothorax. Cardiac: Cardiomegaly. Bones: No acute fractures. Other: IMPRESSION: Widespread bilateral airspace disease without significant change and which may reflect e josé luis and/or pneumonia.
--- NOTE | 2021-10-13 08:13 | EKG ---
Test Date: 2021-10-11 Test Time: 11:03:35 Rn Hemo Dialysis: [facility] MEASUREMENT RESULTS: Intervals: Rate: 85 NM: 184 QRSD: 104 QT: 416 QTc: 495 Vivian: P: 77 NM: 184 QRS: 11 T: 59 INTERPRETIVE STATEMENTS: Normal sinus rhythm Prolonged QT Abnormal ECG Compared to ECG 01/06/2015 11:24:39 Prolonged QT interval now present Electronically Signed On 10-13-21 08:11:26 PLASMA PROCESSING TECHNICIAN by Antoine Sanchez
[2021-10-13] MEDS: CEFTRIAXONE 1,000 MG in NA CHLORIDE 0.9% 50 ML IVPB SCH (08:18)
[2021-10-13] MEDS: TAMSULOSIN 0.4 MG SR CAP PO SCH (08:19)
[2021-10-13] MEDS: PANTOPRAZOLE 40MG TABLET PO SCH ×2 (08:19→16:47)
[2021-10-13] MEDS: FERROUS SULFATE 325 MG TAB PO SCH (08:19)
[2021-10-13] MEDS: AMLODIPINE 5 MG TAB PO SCH (08:20)
[2021-10-13] MEDS: AXITINIB 5 MG PO SCH ×2 (08:20→20:09)
[2021-10-13] MEDS: D5LR 1,000 ML IV SCH (08:22)
[2021-10-13 08:30] LABS: Anisocytosis SLIGHT; Blood Morphology Comment NOTED (NOT SEEN); Dohle Bodies PRESENT; Platelet Estimate DECR; Polychromasia 1+
[2021-10-13 09:18] LABS: Albumin 2.1 g/dL (3.4-5.0); Bilirubin Total 1.7 mg/dL (0.2-1.0); Potassium 3.6 mmol/L (3.5-5.1); Protein, Total 6.2 g/dL (6.4-8.2)
[2021-10-13] MEDS: ONDANSETRON 4 MG/2 ML VIAL IV PRN ×2 (10:25→17:28)
[2021-10-13] MEDS: MORPHINE 2 MG/ML SYR IV PRN ×2 (10:25→17:28)
--- NOTE | 2021-10-13 13:09 | P.PN ---
Subjective Date of Service: 10/13/21 Primary Care Provider: Dr. Hdz; Oncology-Dr. Peck Chief Complaint: Weakness and confusion Subjective: Other (Patient more alert. Overall stable.) Physical Examination - Vital Signs Temperature: 100.9 F Blood Pressure: 101/49 Pulse: 95 Respirations: 20 Pulse Ox (%): 94 - Studies Laboratory Data (last 24 hrs) 10/12/21 13:55: Magnesium 1.9 Microbiology Data (last 24 hrs): 10/11/21 13:15 Catheterized Urine Pansey Count - Final No growth. 10/11/21 13:15 Catheterized Urine - Final No growth. Assessment & Plan Discharge Plan: Home Plan to discharge in: 48 Hours Physician Review Additional Text: COVID: negative CT Head: COMPARISON: HEAD BRAIN W O CONTRAST dated 01/06/2015; Brain W/Wo Cont dated 09/10/2021; Abdomen Pelvis W Contrast dated 08/07/2021; Abdomen With Cont dated 09/08/2021; Thorax W/ Con dated 09/10/2021; Liver Biopsy Procedure dated 08/15/2021; Bone Imaging Whole Body dated 09/10/2021 TECHNIQUE: All CT scans are performed using dose optimization technique as appropriate and may include automated exposure control or mA/KV adjustment according to patient size. FINDINGS: No intracranial hemorrhage, hydrocephalus or extra-axial fluid collection.Mild brain atrophy with mild periventricular and deep white matter chronic microvascular ischemia.No areas of brain edema or evidence of midline shift. The paranasal sinuses and mastoids are clear. The calvarium is intact. IMPRESSION: No acute intracranial abnormality. CT Ab/Pelvis: COMPARISON: Abdomen Pelvis W Contrast dated 08/07/2021 TECHNIQUE: Biphasic CT imaging of the abdomen and pelvis was performed with 100 ml non-ionic IV contrast. All CT scans are performed using dose optimization technique as appropriate and may include automated exposure control or mA/KV adjustment according to patient size. FINDINGS: Small right pleural effusion. The very large highly vascular mass occupying the majority of the right lobe of the liver superior aspect of the right kidney appears similar in size and imaging appearance to the comparative study. No vascular thrombosis is evident. Mild free fluid is seen along the right aspect of the liver as well as along the left lateral aspect of the spleen. No bowel obstruction evident. No free air or abscess. Mildly prominent left sided para-aortic adenopathy is similar to prior study. No lytic or blastic bone lesion. IMPRESSION: The large mass in the right upper quadrant shows no real change since prior examination. No acute process is demonstrated this examination. Initial CXR: COMPARISON: August 2021 FINDINGS: [id number] bilateral pulmonary opacities. Heart remains enlarged IMPRESSION: [id number] bilateral pulmonary opacities suspicious for pneumonia Follow up CXR 10/13/2021: COMPARISON: Chest Single View dated 10/12/2021; CHEST SINGLE VIEW dated 01/06/2015; CHEST SINGLE VIEW dated 03/19/2011; Abdomen Pelvis W Contrast dated 10/11/2021 FINDINGS: Lines: None. Lungs: Bilateral pulmonary opacities are present. These are unchanged compared with 10/12/2021. Pleural: No significant pleural effusions or pneumothorax. Cardiac: Cardiomegaly. Bones: No acute fractures. IMPRESSION: Widespread bilateral airspace disease without significant change and which may reflect edema and/or pneumonia. Physical Exam: GENERAL: Mild confusion noted. Patient more alert today. VITAL SIGNS: Reviewed HEENT: Neck supple NECK: Supple. No carotid bruits. No lymphadenopathy or thyromegaly. LUNGS: Clear to auscultation. No crackles or wheezes are heard. HEART: Regular rate and rhythm, no appreciable gallops, rubs, murmurs or extra heart sounds ABDOMEN: Soft, nontender, and nondistended. Positive bowel sounds. No hepatosplenomegaly was noted. EXTREMITIES: Without any cyanosis, clubbing, rash, lesions or peripheral edema. NEUROLOGIC: The patient is oriented to person, place and time. Strength and sen sation are grossly intact. Face is symmetric. SKIN: Normal color, turgor and temperature. No ulcerations or rashes noted. Impression: Metabolic encephalopathy secondary to chemotherapy-induced nausea and vomiting with metabolic acidosis and dehydration Renal cell carcinoma stage IV on chemotherapy Chronic renal disease stage III with large mass that is invading the Liver Hypertension BPH Bilateral pneumonia Elevated liver function Elevated ammonia level Plan: We will adjust IV fluids. Patient remains on IV Rocephin to cover for pneumonia. Ammonia level was elevated. Will continue with lactulose. Maintain 2-3 BMs per day. Patient on blood pressure medication Norvasc instead of losartan/hydrochlorthiazide due to current status. Continue Protonix 40 mg 1 pill twice daily. Continue medication for BPHFlomax. We will get physical therapy to assess ambulation. Continue to monitor closely. Will monitor lab. Recheck lab tomorrow. Electrolyte protocol in place. Will discuss with his oncologist. Chemotherapy is palliative. Large tumor is in the kidney. Tumor is not curable. Oncology recommends to continue with antiemet ic and supportive care. Code Status: Full Code DVT prophylaxis: Heparin Advanced Care Planning-30 minutes: After discussing with Oncology, will need to readdress the possibility of advanced directives and possibly hospice in the future. Time Spent Managing Pts Care (In Minutes): 55
[2021-10-13] MEDS: D5 0.45 NS 1,000 ML IV SCH (14:25)
[2021-10-13] MEDS ORDERED: TRAMADOL HCL 50 MG TAB PO PRN (16:07)
[2021-10-13] MEDS: LORazepam 2 MG/ML VIAL IV PRN (19:19)
[2021-10-13] MEDS: ENSURE ENLIVE 237 ML CAN PO SCH (21:00)
[2021-10-14] MEDS ORDERED: LORazepam 2 MG/ML VIAL IV ONE (00:33)
[2021-10-14] MEDS: LACTULOSE 20 GM/30 ML UCUP PO SCH ×3 (05:10→17:02)
--- NOTE | 2021-10-14 05:57 | P.PN ---
Subjective Date of Service: 10/14/21 Primary Care Provider: Dr. Hdz; Oncology-Dr. Peck Chief Complaint: Weakness and confusion Subjective: Improving (Daughter reports patient slept well. No significant pain noted. Anxiety improved.) Physical Examination - Vital Signs Temperature: 98.9 F Blood Pressure: 122/58 Pulse: 82 Respirations: 18 Pulse Ox (%): 91 - Studies Microbiology Data (last 24 hrs): 10/11/21 13:15 Catheterized Urine Sutton Count - Final No growth. 10/11/21 13:15 Catheterized Urine - Final No growth. Assessment & Plan Discharge Plan: Home Plan to discharge in: 48 Hours Physician Review Additional Text: COVID: negative CT Head: COMPARISON: HEAD BRAIN W O CONTRAST dated 01/06/2015; Brain W/Wo Cont dated 09/10/2021; Abdomen Pelvis W Contrast dated 08/07/2021; Abdomen With Cont dated 09/08/2021; Thorax W/ Con dated 09/10/2021; Liver Biopsy Procedure dated 08/15/2021; Bone Imaging Whole Body dated 09/10/2021 TECHNIQUE: All CT scans are performed using dose optimization technique as appropriate and may include automated exposure control or mA/KV adjustment according to patient size. FINDINGS: No intracranial hemorrhage, hydrocephalus or extra-axial fluid collection.Mild brain atrophy with mild periventricular and deep white matter chronic microvascular ischemia.No areas of brain edema or evidence of midline shift. The paranasal sinuses and mastoids are clear. The calvarium is intact. IMPRESSION: No acute intracranial abnormality. CT Ab/Pelvis: COMPARISON: Abdomen Pelvis W Contrast dated 08/07/2021 TECHNIQUE: Biphasic CT imaging of the abdomen and pelvis was performed with 100 ml non-ionic IV contrast. All CT scans are performed using dose optimization technique as appropriate and may include automated exposure control or mA/KV adjustment according to patient size. FINDINGS: Small right pleural effusion. The very large highly vascular mass occupying the majority of the right lobe of the liver superior aspect of the right kidney appears similar in size and imaging appearance to the comparative study. No vascular thrombosis is evident. Mild free fluid is seen along the right aspect of the liver as well as along the left lateral aspect of the spleen. No bowel obstruction evident. No free air or abscess. Mildly prominent left sided para-aortic adenopathy is similar to prior study. No lytic or blastic bone lesion. IMPRESSION: The large mass in the right upper quadrant shows no real change since prior examination. No acute process is demonstrated this examination. Initial CXR: COMPARISON: August 2021 FINDINGS: [id number] bilateral pulmonary opacities. Heart remains enlarged IMPRESSION: [id number] bilateral pulmonary opacities suspicious for pneumonia Follow up CXR 10/13/2021: COMPARISON: Chest Single View dated 10/12/2021; CHEST SINGLE VIEW dated 01/06/2015; CHEST SINGLE VIEW dated 03/19/2011; Abdomen Pelvis W Contrast dated 10/11/2021 FINDINGS: Lines: None. Lungs: Bilateral pulmonary opacities are present. These are unchanged compared with 10/12/2021. Pleural: No significant pleural effusions or pneumothorax. Cardiac: Cardiomegaly. Bones: No acute fractures. IMPRESSION: Widespread bilateral airspace disease without significant change and which may reflect edema and/or pneumonia. Physical Exam: GENERAL: Patient more alert today. Last pain noted. VITAL SIGNS: Reviewed HEENT: Neck supple NECK: Supple. No carotid bruits. No lymphadenopathy or thyromegaly. LUNGS: Clear to auscultation. No crackles or wheezes are heard. HEART: Regular rate and rhythm, no appreciable gallops, rubs, murmurs or extra heart sounds ABDOMEN: Soft. Tender to the right upper quadrant with deep palpation. EXTREMITIES: Without any cyanosis, clubbing, rash, lesions or peripheral edema. NEUROLOGIC: Patient oriented. Less distress noted today. SKIN: Normal color, turgor and temperature. No ulcerations or rashes noted. Impression: Metabolic encephalopathy secondary to chemotherapy-induced nausea and vomiting with metabolic acidosis and dehydration Renal cell carcinoma stage IV on chemotherapy Chronic renal disease stage III with large mass that is invading the Liver Hypertension BPH Bilateral pneumonia Elevated liver function Elevated ammonia level Plan: Overall improved. Patient slept well. Better oral intake noted. If taking better intake today then will Hep-Lock IV. Continue IV Rocephin to cover for possible pneumonia. White count improved. Ammonia level improved. Continue lactulose to maintain BM 2 to 3/day. Hold if greater than 3 BMs. Patient remains on blood pressure medicationNorvasc. Losartan hydrochlorothiazide was discontinued. Continue Protonix 40 mg 1 pill twice daily. Continue Flomax for BPH. Physical therapy to assess ambulation. Spoke at length with yesterday concerning plan of care. and children understand patient has stage IV renal cell carcinoma. They are needing more help at home to take care of him. I addressed this in detail with oncologist. Oncology reports chemotherapy recently was more for palliation. Patient with large tumor invading to the liver area. Tumor is not curable. Oncology recommends possible hospice and supportive care. Will discuss again with family and today. Consider hospice at discharge. Likely home in the next 48 hours. Code Status: This was addressed in detail with family. Patient is DNR DVT prophylaxis: Heparin Advanced Care Planning-30 minutes: We will discuss plan of care for patient. Consider hospice at discharge. Time Spent Managing Pts Care (In Minutes): 55
[2021-10-14 06:01] LABS: Absolute Lymphocytes (CBC) 1.3 K/uL (0.7-4.9); Basophils % 0.1 % (0-1.3); Hematocrit 34.6 % (39.6-49.0); Lymphocytes % 8.9 % (15.3-44.8); RBC Red Blood Cell Count 3.89 M/uL (4.33-5.43)
[2021-10-14 06:18] LABS: Albumin 1.9 g/dL (3.4-5.0); Bilirubin Total 1.7 mg/dL (0.2-1.0); Potassium 3.5 mmol/L (3.5-5.1)
[2021-10-14] MEDS: D5 0.45 NS 1,000 ML IV SCH (06:27)
[2021-10-14] MEDS ORDERED: CEFTRIAXONE 1000 MG/VIAL ONE (07:53)
[2021-10-14] MEDS ORDERED: NA CHLORIDE 0.9% 50 ML ONE (07:54)
[2021-10-14] MEDS: PANTOPRAZOLE 40MG TABLET PO SCH ×2 (08:29→17:01)
[2021-10-14] MEDS: HEPARIN 5000 UNIT/ML 1 ML VIAL SQ SCH ×3 (08:45→23:47)
[2021-10-14] MEDS: CEFTRIAXONE 1,000 MG in NA CHLORIDE 0.9% 50 ML IVPB SCH (08:45)
[2021-10-14] MEDS: ENSURE ENLIVE 237 ML CAN PO SCH ×2 (09:00→20:53)
[2021-10-14] MEDS: AXITINIB 5 MG PO SCH ×2 (09:10→20:53)
[2021-10-14] MEDS: FERROUS SULFATE 325 MG TAB PO SCH (09:11)
[2021-10-14] MEDS: TAMSULOSIN 0.4 MG SR CAP PO SCH (09:11)
[2021-10-14] MEDS: AMLODIPINE 5 MG TAB PO SCH (09:11)
[2021-10-14] MEDS: LORazepam 2 MG/ML VIAL IV PRN ×2 (09:12→20:54)
[2021-10-14] MEDS: HYDROCODONE/APAP 7.5/325 MG TAB PO PRN ×2 (12:56→20:50)
[2021-10-15] MEDS: LACTULOSE 20 GM/30 ML UCUP PO SCH ×4 (05:23→18:00)
--- NOTE | 2021-10-15 05:53 | P.PN ---
Subjective Date of Service: 10/15/21 Primary Care Provider: Dr. Hdz; Oncology-Dr. Peck Chief Complaint: Weakness and confusion Subjective: Improving, Doing well Physical Examination - Vital Signs Temperature: 98.3 F Blood Pressure: 153/66 Pulse: 106 Respirations: 20 Pulse Ox (%): 94 Assessment & Plan Discharge Plan: Home (With hospice) Plan to discharge in: 24 Hours Physician Review Additional Text: COVID: negative CT Head: COMPARISON: HEAD BRAIN W O CONTRAST dated 01/06/2015; Brain W/Wo Cont dated 09/10/2021; Abdomen Pelvis W Contrast dated 08/07/2021; Abdomen With Cont dated 09/08/2021; Thorax W/ Con dated 09/10/2021; Liver Biopsy Procedure dated 08/15/2021; Bone Imaging Whole Body dated 09/10/2021 TECHNIQUE: All CT scans are performed using dose optimization technique as appropriate and may include automated exposure control or mA/KV adjustment according to patient size. FINDINGS: No intracranial hemorrhage, hydrocephalus or extra-axial fluid collection.Mild brain atrophy with mild periventricular and deep white matter chronic microvascular ischemia.No areas of brain edema or evidence of midline shift. The paranasal sinuses and mastoids are clear. The calvarium is intact. IMPRESSION: No acute intracranial abnormality. CT Ab/Pelvis: COMPARISON: Abdomen Pelvis W Contrast dated 08/07/2021 TECHNIQUE: Biphasic CT imaging of the abdomen and pelvis was performed with 100 ml non-ionic IV contrast. All CT scans are performed using dose optimization technique as appropriate and may include automated exposure control or mA/KV adjustment according to patient size. FINDINGS: Small right pleural effusion. The very large highly vascular mass occupying the majority of the right lobe of the liver superior aspect of the right kidney appears similar in size and imaging appearance to the comparative study. No vascular thrombosis is evident. Mild free fluid is seen along the right aspect of the liver as well as along the left lateral aspect of the spleen. No bowel obstruction evident. No free air or abscess. Mildly prominent left sided para-aortic adenopathy is similar to prior study. No lytic or blastic bone lesion. IMPRESSION: The large mass in the right upper quadrant shows no real change since prior examination. No acute process is demonstrated this examination. Initial CXR: COMPARISON: August 2021 FINDINGS: [id number] bilateral pulmonary opacities. Heart remains enlarged IMPRESSION: [id number] bilateral pulmonary opacities suspicious for pneumonia Follow up CXR 10/13/2021: COMPARISON: Chest Single View dated 10/12/2021; CHEST SINGLE VIEW dated 01/06/2015; CHEST SINGLE VIEW dated 03/19/2011; Abdomen Pelvis W Contrast dated 10/11/2021 FINDINGS: Lines: None. Lungs: Bilateral pulmonary opacities are present. These are unchanged compared with 10/12/2021. Pleural: No significant pleural effusions or pneumothorax. Cardiac: Cardiomegaly. Bones: No acute fractures. IMPRESSION: Widespread bilateral airspace disease without significant change and which may reflect edema and/or pneumonia. Physical Exam: GENERAL: Patient more alert today. Last pain noted. VITAL SIGNS: Reviewed HEENT: Neck supple NECK: Supple. No carotid bruits. No lymphadenopathy or thyromegaly. LUNGS: Clear to auscultation. No crackles or wheezes are heard. HEART: Regular rate and rhythm, no appreciable gallops, rubs, murmurs or extra heart sounds ABDOMEN: Soft. Tender to the right upper quadrant with deep palpation. EXTREMITIES: Without any cyanosis, clubbing, rash, lesions or peripheral edema. NEUROLOGIC: Patient oriented. Less distress noted today. SKIN: Normal color, turgor and temperature. No ulcerations or rashes noted. 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 Patient slept well. Taking good oral intake. Case discussed in detail with family. Family has decided on [facility] hospice. We will arrange for hospice today. If this can be arranged then will plan for discharge with hospice today. For now will transition to Augmentin 500 mg twice daily for 4 more days. Ammonia level stable. Patient alert. Continue with lactulose to maintain bowel movements 2 to 3/day. Hold if greater than 3 bowel movements. Blood pressure still slightly elevated. Metoprolol 12.5 mg 1 pill twice daily added. Continue with Norvasc 10 mg daily. Patient no longer taking losartan hydrochlorothiazide. Continue Protonix 40 mg 1 pill twice daily. Continue Flomax 0.4 mg daily for BPH. Spoke at length with yesterday concerning plan of care. and children understand patient has stage IV renal cell carcinoma. Oncology reports chemotherapy recently was more for palliation. Patient with large tumor invading to the liver area. Tumor is not curable. Oncology recommends possible hospice and supportive care. Continue with above recommendations on set up for hospice. Code Status: This was addressed in detail with family. Patient is DNR DVT prophylaxis: Heparin Advanced Care Planning-30 minutes: We will arrange for hospice at home. Time Spent Managing Pts Care (In Minutes): 55
[2021-10-15] MEDS: HYDROCODONE/APAP 7.5/325 MG TAB PO PRN ×2 (06:09→17:26)
[2021-10-15] MEDS: METOPROLOL TAR 25 MG TAB PO SCH ×2 (06:09→17:28)
[2021-10-15 06:19] LABS: Absolute Lymphocytes (CBC) 1.5 K/uL (0.7-4.9); Basophils % 0.4 % (0-1.3); Hematocrit 34.6 % (39.6-49.0); Lymphocytes % 10.8 % (15.3-44.8); MPV 8.1 fL (7.6-11.3); RBC Red Blood Cell Count 3.87 M/uL (4.33-5.43)
[2021-10-15 06:39] LABS: Albumin 1.9 g/dL (3.4-5.0); Bilirubin Total 1.7 mg/dL (0.2-1.0); Potassium 3.4 mmol/L (3.5-5.1); Protein, Total 6.3 g/dL (6.4-8.2)
[2021-10-15] MEDS ORDERED: AMOX/K CLAV 500 MG TAB PO SCH (09:00)
[2021-10-15] MEDS: AMLODIPINE 5 MG TAB PO SCH (09:00)
[2021-10-15] MEDS: ENSURE ENLIVE 237 ML CAN PO SCH (09:00)
[2021-10-15] MEDS: AXITINIB 5 MG PO SCH (09:15)
[2021-10-15] MEDS: FERROUS SULFATE 325 MG TAB PO SCH (09:45)
[2021-10-15] MEDS: TAMSULOSIN 0.4 MG SR CAP PO SCH (09:45)
[2021-10-15] MEDS: HEPARIN 5000 UNIT/ML 1 ML VIAL SQ SCH ×2 (09:45→17:38)
[2021-10-15] MEDS: PANTOPRAZOLE 40MG TABLET PO SCH ×2 (09:45→17:26)
--- NOTE | 2021-10-15 12:07 | P.DS ---
Admission Date: 10/12/21 Discharge Date: 10/15/21 Primary Care Provider: Dr. Hdz; Oncology-Dr. Peck Disposition: HOSPICE-HOME Discharge Condition: GOOD Reason for Admission: Weakness and confusion Consultations: none Procedures: COVID: negative CT Head: COMPARISON: HEAD BRAIN W O CONTRAST dated 01/06/2015; Brain W/Wo Cont dated 09/10/2021; Abdomen Pelvis W Contrast dated 08/07/2021; Abdomen With Cont dated 09/08/2021; Thorax W/ Con dated 09/10/2021; Liver Biopsy Procedure dated 08/15/2021; Bone Imaging Whole Body dated 09/10/2021 TECHNIQUE: All CT scans are performed using dose optimization technique as appropriate and may include automated exposure control or mA/KV adjustment according to patient size. FINDINGS: No intracranial hemorrhage, hydrocephalus or extra-axial fluid collection.Mild brain atrophy with mild periventricular and deep white matter chronic microvascular ischemia.No areas of brain edema or evidence of midline shift. The paranasal sinuses and mastoids are clear. The calvarium is intact. IMPRESSION: No acute intracranial abnormality. CT Ab/Pelvis: COMPARISON: Abdomen Pelvis W Contrast dated 08/07/2021 TECHNIQUE: Biphasic CT imaging of the abdomen and pelvis was performed with 100 ml non-ionic IV contrast. All CT scans are performed using dose optimization technique as appropriate and may include automated exposure control or mA/KV adjustment according to patient size. FINDINGS: Small right pleural effusion. The very large highly vascular mass occupying the majority of the right lobe of the liver superior aspect of the right kidney appears similar in size and imaging appearance to the comparative study. No vascular thrombosis is evident. Mild free fluid is seen along the right aspect of the liver as well as along the left lateral aspect of the spleen. No bowel obstruction evident. No free air or abscess. Mildly prominent left brisa ed para-aortic adenopathy is similar to prior study. No lytic or blastic bone lesion. IMPRESSION: The large mass in the right upper quadrant shows no real change since prior examination. No acute process is demonstrated this examination. Initial CXR: COMPARISON: August 2021 FINDINGS: [id number] bilateral pulmonary opacities. Heart remains enlarged IMPRESSION: [id number] bilateral pulmonary opacities suspicious for pneumonia Follow up CXR 10/13/2021: COMPARISON: Chest Single View dated 10/12/2021; CHEST SINGLE VIEW dated 01/06/2015; CHEST SINGLE VIEW dated 03/19/2011; Abdomen Pelvis W Contrast dated 10/11/2021 FINDINGS: Lines: None. Lungs: Bilateral pulmonary opacities are present. These are unchanged compared with 10/12/2021. Pleural: No significant pleural effusions or pneumothorax. Cardiac: Cardiomegaly. Bones: No acute fractures. IMPRESSION: Widespread bilateral airspace disease without significant change and which may reflect edema and/or pneumonia. Medical Problem List: Metabolic encephalopathy secondary to chemotherapy-induced nausea and vomiting with metabolic acidosis and dehydration Renal cell carcinoma stage IV on chemotherapy Chronic renal disease stage III with large mass that is invading the Liver Hypertension BPH Bilateral pneumonia Elevated liver function Elevated ammonia level Brief History of Present Illness: 76-year-old male with history of stage IV [place] with advancement to the liver. Patient recently on immunotherapy. Patient presented with nausea, vomiting, decreased appetite. Patient also reported some diarrhea. Patient was evaluated in the emergency room. Patient admitted for treatment. Hospital Course: Patient presented with altered mental status secondary to metabolic encephalopathy related to chemotherapy-induced nausea and vomiting with metabolic acidosis and hydration. Patient with renal cell carcinoma stage IV. Patient recently receiving immunotherapy. Patient was admitted for treatment. Patient received IV fluids with improvement. Patient also with chronic renal disease stage III, hypertension, BPH. During the course of his stay patient was evaluated and treated for pneumonia. Care discussed in detail with oncology. Oncology reports large tumor from kidney invading the liver area. Tumor is not curable. Chemotherapy recently was for palliation. After long discussion with the family advanced directives were addressed. Patient is DO NOT RESUSCITATE. Family understands that his condition is likely to get worse. After long discussion family has decided on hospice at home. Hospice will be arranged. Pain controlled at this time. At discharge patient will continue with Augmentin 500 mg 1 pill twice daily for 4 more days to cover for pneumonia. At discharge will recommend to discontinue his immunotherapy as this may be contributing to his GI symptoms. Patient will continue with anxiety medication as needed. This will be provided by hospice. Patient will continue with pain medication as needed. This will be provided by hospice as well. Patient will go home with hospice in place. Patient with chronic renal disease stage III. Patient received IV fluids with improvement. Overall stable at this time. Patient with hypertension. Blood pressures were added and adjusted. Patient no longer taking losartan hydrochlorothiazide due to his dehydration and chronic renal disease. New medications include Norvasc and metoprolol. At discharge patient will continue with Norvasc 10 mg daily and metoprolol 12.5 mg twice daily. Recommend to maintain blood pressure less than 130/80. Hold blood pressure medication if blood pressure systolic less than 110. Further adjustment can be done by hospice. Patient with BPH. At discharge patient may continue with Flomax 0.4 mg 1 pill twice daily. Patient with GERD. At discharge patient will continue with Protonix 40 mg 1 pill once daily. Patient with anemia chronic disease with iron deficiency. At discharge patient will continue with iron supplementation daily. Patient will continue with his other medications including B12. Patient had elevated liver function and elevated ammonia level. This is likely related to renal mass invading the liver. Patient required lactulose. Patient will continue with lactulose twice daily to maintain 2-3 bowel movements per day. Hold if greater than 3 bowel movements. Further adjustment can be done by hospice. Vital Signs/Physical Exam: Temp Pulse Resp BP Pulse Ox 98.3 F 106 H 20 113/43 L 94 10/15/21 07:28 10/15/21 07:28 10/15/21 07:28 10/15/21 09:00 10/15/21 07:28 General: Alert, In no apparent distress, Cooperative HEENT: Atraumatic Neck: Supple Respiratory: Clear to auscultation bilaterally Cardiovascular: Normal pulses, Regular rate/rhythm Gastrointestinal: Other (Pain to the right upper quadrant stable.) Integumentary: No tenderness/swelling Neurological: Normal speech, Normal strength at 5/5 x4 extr, Normal tone Laboratory Data at Discharge: WBC 14.20 K/uL (4.3-10.9) H 10/15/21 06:05 Hgb 11.0 g/dL (13.6-17.9) L 10/15/21 06:05 Hct 34.6 % (39.6-49.0) L 10/15/21 06:05 Plt Count 131 K/uL (152-406) L 10/15/21 06:05 Sodium 139 mmol/L (136-145) 10/15/21 06:05 Potassium 3.4 mmol/L (3.5-5.1) L 10/15/21 06:05 BUN 32 mg/dL (7-18) H 10/15/21 06:05 Creatinine 1.27 mg/dL (0.55-1.3) 10/15/21 06:05 Glucose 98 mg/dL (74-106) 10/15/21 06:05 Magnesium 2.1 mg/dL (1.8-2.4) 10/13/21 14:16 Total Bilirubin 1.7 mg/dL (0.2-1.0) H 10/15/21 06:05 AST 42 U/L (15-37) H 10/15/21 06:05 ALT 51 U/L (12-78) 10/15/21 06:05 Alkaline Phosphatase 206 U/L (45-117) H 10/15/21 06:05 Lipase 230 U/L (73-393) 10/11/21 10:20 Home Medications: Tamsulosin [Flomax*] 0.4 mg PO DAILY 08/15/21 Cyanocobalamin (Vitamin B-12) [Vitamin B-12] 500 mcg PO DAILY 10/12/21 Ergocalciferol (Vitamin D2) [Vitamin D2] 1,250 mcg PO Q7D 10/12/21 Ferrous Sulfate [Ferrous Sulfate*] 325 mg PO DAILY 10/12/21 Loperamide [Imodium*] 2 mg PO UD PRN 10/12/21 Trazodone HCl 50 mg PO BEDTIME PRN PRN 10/12/21 Amlodipine Besylate [Norvasc] 10 mg PO DAILY #30 tablet 10/15/21 Amox/Clavulanate [Augmentin 500-125 mg Tab*] 500 mg PO BID #8 tab 10/15/21 Ensure Enlive 237 ml PO BID #60 can 10/15/21 Lactulose [Cephulac*] 30 ml PO BID #1 bottle 10/15/21 Metoprolol Tartrate [Lopressor*] 12.5 mg PO BID 6AM 6PM #60 tab 10/15/21 Pantoprazole [Protonix Tab*] 40 mg PO DAILY #30 tab 10/15/21 New Medications: Amox/Clavulanate [Augmentin 500-125 mg Tab*] 500 mg PO BID #8 tab Lactulose [Cephulac*] 30 ml PO BID #1 bottle Ensure Enlive 237 ml PO BID #60 can Metoprolol Tartrate [Lopressor*] 12.5 mg PO BID 6AM 6PM #60 tab Amlodipine Besylate [Norvasc] 10 mg PO DAILY #30 tablet Pantoprazole [Protonix Tab*] 40 mg PO DAILY #30 tab Physician Discharge Instructions: Patient presented with altered mental status secondary to metabolic encephalopathy related to chemotherapy-induced nausea and vomiting with metabolic acidosis and hydration. Patient with renal cell carcinoma stage IV. Patient recently receiving immunotherapy. Patient was admitted for treatment. Patient received IV fluids with improvement. Patient also with chronic renal disease stage III, hypertension, BPH. During the course of his stay patient was evaluated and treated for pneumonia. Care discussed in detail with oncology. Oncology reports large tumor from kidney invading the liver area. Tumor is not c urable. Chemotherapy recently was for palliation. After long discussion with the family advanced directives were addressed. Patient is DO NOT RESUSCITATE. Family understands that his condition is likely to get worse. After long discussion family has decided on hospice at home. Hospice will be arranged. Pain controlled at this time. At discharge patient will continue with Augmentin 500 mg 1 pill tw ice daily for 4 more days to cover for pneumonia. At discharge will recommend to discontinue his immunotherapy as this may be contributing to his GI symptoms. Patient will continue with anxiety medication as needed. This will be provided by hospice. Patient will continue with pain medication as needed. This will be provided by hospice as well. Patient will go home with hospice in place. Patient with chronic renal disease stage III. Patient received IV fluids with improvement. Overall stable at this time. Patient with hypertension. Blood pressures were added and adjusted. Patient no longer taking losartan hydrochlorothiazide due to his dehydration and chronic renal disease. New medications include Norvasc and metoprolol. At discharge patient will continue with Norvasc 10 mg daily and metoprolol 12.5 mg twice daily. Recommend to maintain blood pressure less than 130/80. Hold blood pressure medication if blood pressure systolic less than 110. Further adjustment can be done by hospice. Patient with BPH. At discharge patient may continue with Flomax 0.4 mg 1 pill twice daily. Patient with GERD. At discharge patient will continue with Protonix 40 mg 1 pill once daily. Patient with anemia chronic disease with iron deficiency. At discharge patient will continue with iron supplementation daily. Patient will continue with his other medications including B12. Patient had elevated liver function and elevated ammonia level. This is likely related to renal mass invading the liver. Patient required lactulose. Patient will continue with lactulose twice daily to maintain 2-3 bowel movements per day. Hold if greater than 3 bowel movements. Further adjustment can be done by hospice. Diet: AHA Activity: Fall precautions Followup: Blayne Hdz MD [Primary Care Provider] - Time spent managing pt's care (in minutes): 55
[2021-10-15 12:57] VITALS: O2SAT 95
[2021-10-15 16:50] VITALS: BP 134/56; TEMP 99.1
== END 2021-10-15 19:55 | disposition hospice, home (50) | DRG 70 ==
LOC: ER 09:05 → ERHOLD 13:55 → 2ND 20:48 → OBSVTOIN 10-12 17:58
PROVIDERS: ADMIT Internal Medicine; ATTEND Family Medicine
DX: G93.41 Metabolic encephalopathy (principal); J18.9 Pneumonia, unspecified organism; C64.9 Malignant neoplasm of unspecified kidney, except renal pelvis; E87.2 Acidosis; E44.1 Mild protein-calorie malnutrition; N40.0 Benign prostatic hyperplasia without lower urinary tract symptoms; E86.0 Dehydration; N28.89 Other specified disorders of kidney and ureter; F41.9 Anxiety disorder, unspecified; D50.9 Iron deficiency anemia, unspecified; R11.2 Nausea with vomiting, unspecified; T45.1X5A Adverse effect of antineoplastic and immunosuppressive drugs, initial encounter; I12.9 Hypertensive chronic kidney disease with stage 1 through stage 4 chronic kidney disease, or unspecified chronic kidney disease; N18.31 Chronic kidney disease, stage 3a; R94.5 Abnormal results of liver function studies; Z66 Do not resuscitate; Z79.899 Other long term (current) drug therapy; Z68.28 Body mass index [BMI] 28.0-28.9, adult; Z85.46 Personal history of malignant neoplasm of prostate; Z20.822 Contact with and (suspected) exposure to COVID-19
CPT/HCPCS: 36415; 70450; 71045; 74177; 80048; 80053; 80076; 81003; 81015; 82140; 82565; 82947; 83690; 83735; 84145; 84443; 85025; 87040; 87086; 87088; 93005; 96361; 96374; 97110; 97161; 97530; 99285; G0378; J0360; J1644; J2270; J2405; J7030; J7120; J7121; J7799; Q9967; U0003